=== PATIENT | male | born 1940 | race Caucasian/White ===

== ENCOUNTER 2016-12-24 14:18 | Emergency (ER) | payer OTHER ==
[2017-04-21] MEDS ORDERED: GLUCOPHAGE 500500 MG PO (12:15)
[2017-04-21] MEDS ORDERED: REQUIP2 MG PO (12:16)
[2017-04-21] MEDS ORDERED: HYDROCHLOROTHIA25 MG PO (12:17)
[2017-04-21] MEDS ORDERED: LISINOPRIL5 MG PO (12:17)
[2017-04-21] MEDS ORDERED: AMARYL 2MG TABLE2 MG PO (12:18)
[2017-04-21] MEDS ORDERED: ASPIR 8181 MG PO (12:18)
[2017-04-21] MEDS ORDERED: MAXIMUM DAILY1 EAC1 PO (12:18)
[2017-04-21] MEDS ORDERED: DILTIAZEM 24HR180 MG PO (12:29)
== END 2016-12-24 16:30 | disposition home or self-care (01) ==
LOC: ER1 14:18
DX: S05.02XA Injury of conjunctiva and corneal abrasion without foreign body, left eye, initial encounter (principal); E11.9 Type 2 diabetes mellitus without complications; I10 Essential (primary) hypertension; X58.XXXA Exposure to other specified factors, initial encounter
CPT/HCPCS: 99283

== ENCOUNTER 2021-07-01 12:09 | Emergency (ER) | payer OTHER ==
[~2021-07-01 12:09] MED LIST: AMARYL 2MG TABLE2 MG PO; ASPIR 8181 MG PO; ASPIRIN EC81 MG PO; ATORVASTATIN CA20 MG PO; CEFUROXIME500 MG PO; CENTRUM SILVER1 EAC2 PO; CLOPIDOGREL75 MG PO; COZAAR50 MG PO; DILTIAZEM 24HR180 MG PO; FENOFIBRATE145 MG PO; FLAGYL500 MG PO; GLUCOPHAGE 500500 MG PO; GLUCOPHAGE500 MG PO; HUMALOG 10100 UNITS/ SC; HYDROCHLOROTHIA25 MG PO; IPRAT-ALBUT 0.5-3 ML INH; IRON240 MG PO; LEVAQUIN750 MG PO; LISINOPRIL5 MG PO; LOPRESSOR 25 MG25 MG PO; MAXIMUM DAILY1 EAC1 PO; MEDROL4 MG PO; MIRAPEX1 MG PO; NEBULIZER UNIT INH; NITROGLYCERIN0.4 MG SL; NORCO 5-325 TA1 EACH PO; NORVASC 5 MG TAB5 MG PO; REQUIP2 MG PO; REVATIO 20 MG T20 MG PO; VENTOLIN HFA 66.7 GM INH
[2021-07-01 13:18] LABS: HEMOGLOBIN 12.3 gm/dl (14.0-17.5); RED BLOOD COUNT 4.34 M/UL (4.20-5.50); WHITE BLOOD COUNT 7.6 K/UL (4.5-11.0)
[2021-07-01 13:36] LABS: BUN/CREATININE RATIO 21 (0-10)
[2021-07-01] MEDS ORDERED: ONDANSETRON ODT4 MG SL (15:02)
[2021-07-01] MEDS ORDERED: IMODIUM CAP 2 MG2 MG PO (15:02)
== END 2021-07-01 15:45 | disposition home or self-care (01) ==
LOC: ER1 12:09
PROVIDERS: Physician Assistant
DX: R10.13 Epigastric pain (principal); R10.10 Upper abdominal pain, unspecified; R19.7 Diarrhea, unspecified; E11.9 Type 2 diabetes mellitus without complications; E78.5 Hyperlipidemia, unspecified; I10 Essential (primary) hypertension; I25.2 Old myocardial infarction; Z90.49 Acquired absence of other specified parts of digestive tract; Z20.822 Contact with and (suspected) exposure to COVID-19
CPT/HCPCS: 80053; 81001; 83690; 85025; 99284; U0002